=== PATIENT | male | born 1935 | race Caucasian/White ===

== ENCOUNTER 2022-02-16 18:24 | Inpatient (IN) ==
[2022-02-16] MEDS ORDERED: 0.9 % SODIUM CHLORIDE 1,000 ML IV ONE (19:31)
--- NOTE | 2022-02-16 19:36 | Emergency Department Note ---
Fall HPI General Chief Complaint: Fall Stated Complaint: fall, hip pain Time Seen by Provider: 02/16/22 18:50 Source: patient, family and EMS Mode of arrival: ambulatory Limitations: no limitations History of Present Illness HPI Narrative: Narrative: Patient presents to ED via EMS status post fall. Patient states that he was watching TV and he went up to get up and fell down. He reports pain in his hip and in his left shoulder. He reports he did not hit his head. Denies loss of consciousness, chest pain, abdominal pain, knee pain, vision changes, headache, shortness of breath, neck pain. Patient that he was on the ground for 30 minutes before his son came over and called the emergency services. Patient denies any other alleviating or aggravating factors. Related Data Home Medications Medication Instructions Recorded Confirmed naproxen sodium 220 mg tablet 220 mg PO Q12H PRN Pain 10/08/20 07/16/21 (Aleve) calcium carbonate 500 mg calcium 1,000 mg PO QDAY 02/04/21 07/16/21 (1,250 mg) tablet (Calcium 500) cholecalciferol (vitamin D3) 50 2,000 unit PO QDAY 02/04/21 07/16/21 mcg (2,000 unit) tablet ferrous sulfate 325 mg (65 mg 325 mg PO QDAY 02/04/21 07/16/21 iron) tablet Previous Rx's Medication Instructions Recorded nitroglycerin 0.4 mg sublingual 0.4 mg sublingual Q5-15M PRN chest 06/17/21 tablet pain #25 tabs omeprazole 20 mg capsule,delayed 20 mg PO QAM #30 caps 06/26/21 release sertraline 25 mg tablet See Rx Instructions .Route 09/20/21 .COMPLEX #30 tabs metoprolol succinate 25 mg 25 mg PO QDAY #90 tabs 12/18/21 tablet,extended release 24 hr torsemide 10 mg tablet See Rx Instructions .Route 12/18/21 .COMPLEX #30 ea simvastatin 20 mg tablet 20 mg PO QHS #30 tabs 01/07/22 spironolactone 25 mg tablet 12.5 mg PO QDAY #30 tabs 02/04/22 Allergies Allergy/AdvReac Type Severity Reaction Status Date / Time No Known Intolerances Allergy Unknown unknown Verified 07/16/21 10:48 Chicken Feathers Allergy Unknown unknown Uncoded 07/16/21 10:48 Review of Systems ROS ROS Narrative: Narrative: All systems ED: reviewed and negative except as stated. [facility] Narrative Patient History Narrative: Narrative: Medical/Surgical/Family History All Active Problems (Updated 02/16/22 @ 21:52 by Colby Saldaña DO) Closed fracture of neck of left femur (Acute) Fall (Acute) Head injury (Acute) Traumatic hematoma of forehead (Acute) CAD (coronary artery disease) (Acute) Medicare annual wellness visit, subsequent (Acute) Edema (Acute) Venous stasis ulcer (Acute) Encounter for medication monitoring (Acute) DDD (degenerative disc disease), cervical (Chronic) Neck pain (Chronic) Joint pain (Chronic ~1954) High cholesterol (Chronic) High blood pressure (Chronic) Heart trouble (Chronic) Depression (Chronic ~2005) Daytime sleepiness (Chronic ~2005) Acid reflux (Chronic ~1969) Medical History (Updated 02/16/22 @ 21:52 by Colby Saldaña DO) Acid reflux (~1969) Daytime sleepiness (~2005) Depression (~2005) Heart trouble High blood pressure High cholesterol Joint pain (~1954) Neck pain Surgical History History of appendectomy History of colonoscopy Family History Mother Dementia Father Heart attack Social History Smoking Status: Former smoker Alcohol Intake Frequency: a few times a month Substance Use: does not use Exam Narrative Narrative: Narrative: General Limitations: no limitations General appearance: Present alert Head Head: Present atraumatic and normocephalic Eye Eye: Present PERRL and EOMI Neck Neck: Present normal inspection and full ROM Chest Chest: Present normal inspection; Absent tenderness Respiratory Respiratory: Present normal lung sounds bilaterally; Absent respiratory distress Cardiovascular Cardiovascular: Present regular rate and normal rhythm Adbominal Abdominal: Present soft; Absent tenderness Expanded Upper Extremity Shoulder: Present full ROM and tenderness (Left) Arm: Present normal inspection and full ROM Elbow: Present normal inspection and full ROM Expanded Lower Extremity Hip/Pelvis: Present tenderness; Absent swelling or deformity Upper leg: Present normal inspection and full ROM Knee: Present normal inspection and full ROM Back Back: Absent L-S tenderness Neurological Neurological: Present alert and oriented X3 Psychiatric Psychiatric: Present normal affect and normal mood Skin Skin: Present warm (WNL) and intact Course Course Course Narrative: Patient was evaluated for left hip and shoulder pain status post fall. X-ray of the left shoulder was negative for any acute findings. Labs show that patient was dehydrated elevated BUN and creatinine she was given IV fluids. CT of the pelvis obtained with image reviewed myself which revealed a left displaced femoral neck fracture. Case was discussed with orthopedic surgery recommend the patient be admitted to the hospitalist service and made n.p.o. after 8 AM tomorrow. Case was discussed with hospitalist who is graciously excepted josh ent to be admitted. Plan of care was discussed with patient he expressed verbal understanding agreement. Reevaluation(s) Reevaluation #1: Patient remains hemodynamically stable. No new complaints at this time Time: 20:15 Consultations Consultation #1: Case discussed with on-call orthopedic surgeon, Dr. Braun, recommend that patient be admitted to the hospitalist, made n.p.o. after 8 AM tomorrow for respective surgery. Time: 21:45 Consultation #2: Case discussed with hospitalist, Dr. Schulte, who has graciously except the patient to be admitted to the hospital. Time: 21:55 Vital Signs Vital signs: Vital Signs Temperature 99.4 F H 02/16/22 18:39 Pulse Rate 66 02/16/22 18:39 Respiratory Rate 17 02/16/22 18:39 Blood Pressure 152/70 02/16/22 18:39 Pulse Oximetry (%) 94 02/16/22 18:39 Oxygen Delivery Method 02/16/22 18:39 Temperature 99.4 F H 02/16/22 18:39 Pulse Rate 73 02/16/22 21:16 Respiratory Rate 18 02/16/22 21:16 Blood Pressure 168/76 02/16/22 21:16 Pulse Oximetry (%) 96 02/16/22 21:16 Oxygen Delivery Method 02/16/22 18:39 MDM MDM Narrative Medical decision making narrative: Narrative: Differential Diagnosis Differential Diagnosis: Hip fracture, shoulder fracture, fall Medical Records Medical records reviewed: Yes I reviewed the patient's medical records. Lab Data Result diagrams: 02/16/22 19:42 Labs: Lab Results 02/16/22 02/16/22 Range/Units 19:42 19:42 WBC 9.1 (4.5-11.0) K/mcL RBC 3.38 L (4.63-6.08) M/mcL Hgb 12.2 L (13.7-17.5) g/dL Hct 35.4 L (40.1-51.0) % POC Hct 36.0 L (41-55) MCV 104.7 H (80.0-100.0) fL MCH 36.1 H (26.0-34.0) pg MCHC 34.5 (31.0-36.0) g/dL RDW 14.2 (11.5-14.5) % Plt Count 169 (140-440) K/mcL MPV 9.8 (8.8-12.5) fL Immature Gran % (Auto) 0.8 H (0.0-0.5) % Neut % (Auto) 76.6 (38.0-78.0) % Lymph % (Auto) 11.1 L (15.5-49.0) % Rankin % (Auto) 9.5 (1.0-12.0) % Eos % (Auto) 1.4 (0.0-7.0) % Baso % (Auto) 0.6 (0.0-2.0) % Lymph # (Auto) 1.01 L (1.50-4.80) K/mcL Rankin # (Auto) 0.86 (0.10-0.90) K/mcL Eos # (Auto) 0.13 (0.00-0.70) K/mcL Baso # (Auto) 0.05 (0.00-0.30) K/mcL Immature Gran # 0.07 H (0.00-0.05) K/mcl Absolute Neutrophils 6.94 (1.80-8.00) K/mcL POC Sodium 140 (133-145) POC Potassium 4.5 (3.3-5.1) POC Chloride 103 (96-108) POC Total CO2 25.0 (22-30) POC BUN 28 H (6-20) POC Creatinine 1.7 H (0.6-1.2) POC Glucose 118 H (70-105) POC WB Ioniz Calcium 1.13 L (1.16-1.32) Radiology Data Radiology results reviewed: Yes I reviewed the patient's radiology results. Radiology results narrative: CT of the pelvis obtained with image reviewed myself which revealed a left displaced femoral neck fracture X-ray of the left shoulder obtained, no acute findings Core Measures AMI Core Measures Followed: Yes Discharge Plan Patient/Caregiver Discharge Instructions Pt seen by [employer] DEVELOPER/PA only: No Clinical Impression: Closed fracture of neck of left femur Qualifiers: Encounter type: initial encounter Qualified Code(s): S72.002A - Fracture of unspecified part of neck of left femur, initial encounter for closed fracture Fall Qualifiers: Encounter type: initial encounter Qualified Code(s): W19.XXXA - Unspecified fall, initial encounter Patient Disposition: Xfer As Outpt/Obs ([facility]) Condition: Good Follow up with: No,PCP [Primary Care Provider] - Prescriptions: No Action cholecalciferol (vitamin D3) 50 mcg (2,000 unit) tablet 2,000 unit PO QDAY calcium carbonate [Calcium 500] 500 mg calcium (1,250 mg) tablet 1,000 mg PO QDAY ferrous sulfate 325 mg (65 mg iron) tablet 325 mg PO QDAY omeprazole 20 mg capsule,delayed release(DR/EC) 20 mg PO QAM Qty: 30 12RF Rx Instructions: 1 hr.prior to breakfast. sertraline 25 mg tablet See Rx Instructions .ROUTE .COMPLEX Qty: 30 6RF Dose Instruction: TAKE ONE TABLET BY MOUTH EVERY DAY Rx Instructions: TAKE ONE TABLET BY MOUTH EVERY DAY metoprolol succinate 25 mg tablet extended release 24 hr 25 mg PO QDAY Qty: 90 0RF torsemide 10 mg tablet See Rx Instructions .ROUTE .COMPLEX Qty: 30 3RF Dose Instruction: TAKE ONE TABLET BY MOUTH Thursday AND THURSDAY FOR EDEMA Rx Instructions: TAKE ONE TABLET BY MOUTH Thursday AND THURSDAY FOR EDEMA simvastatin 20 mg tablet 20 mg PO QHS Qty: 30 2RF spironolactone 25 mg tablet 12.5 mg PO QDAY Qty: 30 1RF nitroglycerin 0.4 mg tablet, sublingual 0.4 mg sublingual Q5-15M PRN (Reason: chest pain) Qty: 25 1RF Rx Instructions: do not exceed 3 doses per episode naproxen sodium [Aleve] 220 mg Tablet 220 mg PO Q12H PRN (Reason: Pain)
[2022-02-16 19:46] LABS: POC Calcium, Ionized 1.13 (1.16-1.32); POC Creatinine 1.7 (0.6-1.2); POC Potassium 4.5 (3.3-5.1)
[2022-02-16 20:31] LABS: Basophils # (Auto) 0.05 K/mcL (0.00-0.30); Basophils % (Auto) 0.6 % (0.0-2.0); Eosinophils # (Auto) 0.13 K/mcL (0.00-0.70); Eosinophils % (Auto) 1.4 % (0.0-7.0); Hematocrit 35.4 % (40.1-51.0); Hemoglobin 12.2 g/dL (13.7-17.5); Lymphocytes # (Auto) 1.01 K/mcL (1.50-4.80); Lymphocytes % (Auto) 11.1 % (15.5-49.0); Mean Cell Volume 104.7 fL (80.0-100.0); Mean Corpuscular HGB Conc 34.5 g/dL (31.0-36.0); Mean Platelet Volume 9.8 fL (8.8-12.5); Monocytes # (Auto) 0.86 K/mcL (0.10-0.90); Monocytes % (Auto) 9.5 % (1.0-12.0); Neutrophils % (Auto) 76.6 % (38.0-78.0); Platelet Count 169 K/mcL (140-440); RBC 3.38 M/mcL (4.63-6.08); Red Cell Distribution Width 14.2 % (11.5-14.5); WBC 9.1 K/mcL (4.5-11.0)
[2022-02-16] MEDS ORDERED: ACETAMINOPHEN 325 MG TABLET PO ONE (21:29)
[2022-02-16] MEDS ORDERED: fentaNYL 100 MCG/2 ML VIAL IV ONE (21:46)
--- NOTE | 2022-02-16 22:04 | Internal Med History&Physical ---
HPI History of Present Illness Patient information: Note initiated : 02/16/22 at 9:59 pm Service Date, if different from initiated Date: [] Patient: Aura Hyatt 87 y/o M admitted on for fall, hip pain. Chief Complaint: [] History of present illness: Mr. Hyatt is a 87 year old male with a history of hypertension, hyperlipidemia, coronary artery disease status post CABG, probable CKD stage III, atrial flutter not on anticoagulation due to personal choice, peripheral vascular disease who had a mechanical fall at home and brought into the emergency department where he was found to have a left intertrochanteric femoral fracture. [facility] medicine was asked to admit the patient with orthopedic surgery consulting for surgical repair. Review of systems Constitutional: no fever, fatigue, or weight loss Eyes: no vision changes or pain Cardiovascular: no chest pain, no palpitations Respiratory: no cough or dyspnea Gastrointestinal: no abdominal pain, no nausea, vomiting, or diarrhea Genitourinary: no dysuria or difficulty voiding Musculoskeletal: Left hip pain with movement Integumentary: no skin lesion or wound Neurological: no focal weakness or numbness Psychiatric: no anxiety or depression Physical exam Head: Atraumatic, normal inspection. Eyes: normal appearance, no scleral icterus. Neck: full ROM Respiratory: no respiratory distress. Cardiovascular: Sternotomy incision, normal rate and rhythm, S1, S2. GI/Abdominal: soft, nontender, no guarding. Extremities: Left hip tenderness, limited range of motion to left lower extremity. Neurological: CN II-XII intact, intact motor, intact sensation. Psychiatric: normal mood. Skin: warm, normal color PFSH PFSH All Active Problems Closed fracture of neck of left femur (Acute) Fall (Acute) Head injury (Acute) Traumatic hematoma of forehead (Acute) CAD (coronary artery disease) (Acute) Medicare annual wellness visit, subsequent (Acute) Edema (Acute) Venous stasis ulcer (Acute) Encounter for medication monitoring (Acute) DDD (degenerative disc disease), cervical (Chronic) Neck pain (Chronic) Joint pain (Chronic ~1954) High cholesterol (Chronic) High blood pressure (Chronic) Heart trouble (Chronic) Depression (Chronic ~2005) Daytime sleepiness (Chronic ~2005) Acid reflux (Chronic ~1969) Medical History Acid reflux (~1969) Daytime sleepiness (~2005) Depression (~2005) Heart trouble High blood pressure High cholesterol Joint pain (~1954) Neck pain Surgical History History of appendectomy History of colonoscopy Family History Mother Dementia Father Heart attack Social History marital status: occupational status: retired smoking status: Former smoker pack-years: 20 smoking status stop date: 05/04/96 alcohol intake frequency: a few times a month substance use type: does not use MEDS/ALLERGIES Home Medications and Allergies Home Medications Medication Instructions Recorded Confirmed Type cholecalciferol (vitamin D3) 50 2,000 unit PO QDAY 02/04/21 02/16/22 History mcg (2,000 unit) tablet ferrous sulfate 325 mg (65 mg 325 mg PO QDAY 02/04/21 02/16/22 History iron) tablet nitroglycerin 0.4 mg sublingual 0.4 mg sublingual Q5-15M PRN chest 06/17/21 02/16/22 Rx tablet pain #25 tabs omeprazole 20 mg capsule,delayed 20 mg PO QAM #30 caps 06/26/21 02/16/22 Rx release sertraline 25 mg tablet See Rx Instructions .Route 09/20/21 02/16/22 Rx .COMPLEX #30 tabs metoprolol succinate 25 mg 25 mg PO QDAY #90 tabs 12/18/21 02/16/22 Rx tablet,extended release 24 hr torsemide 10 mg tablet See Rx Instructions .Route 12/18/21 02/16/22 Rx .COMPLEX #30 ea simvastatin 20 mg tablet 20 mg PO QHS #30 tabs 01/07/22 02/16/22 Rx spironolactone 25 mg tablet 12.5 mg PO QDAY #30 tabs 02/04/22 02/16/22 Rx Allergies Allergy/AdvReac Type Severity Reaction Status Date / Time No Known Drug Allergies Allergy Unverified 02/17/22 05:55 EXAM Constitutional Vitals: Temp Pulse Resp BP Pulse Ox O2 Del Method 99.4 F H 73 18 168/76 96 02/16/22 18:39 02/16/22 21:16 02/16/22 21:16 02/16/22 21:16 02/16/22 21:16 02/16/22 18:39 DATA Data Completed and Pending Labs: Labs from last 24 hours 02/16/22 02/16/22 19:42 19:42 WBC 9.1 RBC 3.38 L Hgb 12.2 L Hct 35.4 L POC Hct 36.0 L MCV 104.7 H MCH 36.1 H MCHC 34.5 RDW 14.2 Plt Count 169 MPV 9.8 Immature Gran % (Auto) 0.8 H Neut % (Auto) 76.6 Lymph % (Auto) 11.1 L Prentiss % (Auto) 9.5 Eos % (Auto) 1.4 Baso % (Auto) 0.6 Lymph # (Auto) 1.01 L Prentiss # (Auto) 0.86 Eos # (Auto) 0.13 Baso # (Auto) 0.05 Immature Gran # 0.07 H Absolute Neutrophils 6.94 POC Sodium 140 POC Potassium 4.5 POC Chloride 103 POC Total CO2 25.0 POC BUN 28 H POC Creatinine 1.7 H POC Glucose 118 H POC WB Ioniz Calcium 1.13 L A/P Narrative A/P Narrative: Assessment: 87 year old male with a history of hypertension, hyperlipidemia, coronary artery disease status post CABG, atrial flutter not on anticoagulation, probable CKD stage III now admitted for a left peritrochanteric femoral fracture from a ground level mechanical fall. #Left femoral neck fracture due to mechanical fall #Acute kidney injury, probable CKD stage III at baseline #Coronary artery disease, stable #Atrial flutter not on anticoagulation due to personal preference #Macrocytic anemia #Hypertension #Hyperlipidemia Plan -Analgesics as needed, avoid NSAIDs. -IV fluid. -EKG for baseline. -Follow renal function. -Home medications reconciliation. -Orthopedic surgery consult. -NPO after midnight. -PT consult -CODE STATUS: DNR/DNI Plan of Treatment: On exam patient is seated at the edge of the bed mildly agitated in some distress. He is alert and oriented to person and place. He is able to answer questions appropriately and understands that he does have a fracture of his left hip. Pupils are PERRL, mucous membranes are moist, lungs are equal and clear bilaterally heart normal rate and rhythm. Head, neck, chest, abdomen, bilateral upper extremities are nontender to palpation and exhibit normal range of motion and strength. Bilateral lower extremities are warm, well-perfused, neurovascular intact with intact ankle motion to testing. At the left hip and pelvis area there is tenderness to palpation and with any range of motion CT imaging obtained via the [facility] reveals a basicervical fracture of the left femoral neck. Options were presented to the patient including nonsurgical and surgical option nonsurgical which carries a risk of increased pain, increased injury to nerves and adjacent blood vessels, surgical options consisting of left hip hemiarthroplasty at this time patient is interested in surgery Plan is for left hip hemiarthroplasty to take place [place] emergently with Dr. Braun orthopedic surgeon [employer] [facility] Surgical risks were explained to the patient including but not limited to: Pain, bleeding, infection, injury to adjacent structures, need for further surgery, implant failure, stroke risk, cardiac complications including heart attack or [place], pulmonary complications including pneumonia and pulmonary embolism, DVT, anesthesia reactions and . Patient understands his risks and wishes to proceed with surgery. Time Spent With Patient Time: Total time spent is greater than 50% in coordination of care (as documented) at patient's floor/unit and/or counseling patient:
[2022-02-16] MEDS ORDERED: HYDROmorphone 0.5 MG/0.5 ML SYRINGE IV PRN (23:11)
[2022-02-16] MEDS ORDERED: ONDANSETRON 4 MG/2 ML VIAL IV PRN (23:11)
[2022-02-16] MEDS ORDERED: HYDROcodone/APAP 5/325MG TABLET PO PRN (23:11)
[2022-02-16] MEDS ORDERED: 0.9 % SODIUM CHLORIDE 1,000 ML IV SCH (23:11)
[2022-02-16] MEDS ORDERED: ACETAMINOPHEN 325 MG TABLET PO PRN (23:11)
[2022-02-16] MEDS: 0.9 % SODIUM CHLORIDE 10 ML SYRINGE IV SCH (23:17)
[2022-02-17] MEDS ORDERED: ACETAMINOPHEN 325 MG TABLET PO ONE (01:05)
[2022-02-17] MEDS ORDERED: HYDROmorphone 0.5 MG/0.5 ML SYRINGE ONE (04:03)
--- NOTE | 2022-02-17 05:30 | XRay Report ---
CLINICAL INFORMATION: Trauma-fall COMPARISON: None. FINDINGS: The acromioclavicular and glenohumeral joint spaces are normal in width and alignment without arthritic change. There is no fracture or other osseous abnormality. Soft tissues are unremarkable. IMPRESSION: Normal exam. Interpreted and Authenticated by: Jos Hall 02/17/22
--- NOTE | 2022-02-17 05:32 | XRay Report ---
CLINICAL INFORMATION: Trauma-fall COMPARISON: 10/08/2020 TECHNIQUE: Portable FINDINGS: Sternotomy/CABG changes again noted. The heart is mildly enlarged. Mediastinum and pulmonary vessels are unremarkable. COPD with scattered scarring in the mid and lower lungs again noted. There are no new pulmonary abnormalities. No effusions or evidence of pneumothorax. MALUNIFIED old right rib fractures seen as before. IMPRESSION: No acute posttraumatic change Mild cardiomegaly and COPD stable. No acute radial pulmonary disease Interpreted and Authenticated by: Jos Hall 02/17/22
[2022-02-17] MEDS: 0.9 % SODIUM CHLORIDE 10 ML SYRINGE IV SCH ×3 (05:48→20:29)
--- NOTE | 2022-02-17 06:52 | Cat Scan Report ---
CLINICAL INFORMATION: Trauma COMPARISON: None. TECHNIQUE: 0.625 mm helical slices were obtained from the mid L4 through the subtrochanteric regions. Following reconstruction, 2.5 mm sagittal, coronal and axial reformations were processed. The exam was reviewed in bone and soft tissue windows. The exam was performed using radiation dose optimization techniques including, but not limited to, automated exposure control, adjustment of mA and/or kV according to patient size and use of iterative reconstruction technique. FINDINGS: Oblique, mildly comminuted basicervical fracture of the left hip features moderate impaction of the femoral neck into the intertrochanteric region. There is a resultant coxa vara angulation. Mild L4 compression fracture with approximately 30% loss vertebral height is likely chronic. No other osseous abnormality. Both SI and hip joints are normal in width and alignment arthritic change. 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 Urinary bladder is mildly distended with multiple small diverticuli projecting from the anterior dome region. Sigmoid diverticulosis appreciated, but no evidence of diverticulitis. The remaining visualized large and small bowel are normal. 14 mm low-attenuation lesion inferior pole right kidney is likely a cyst IMPRESSION: 1. Mildly comminuted acute basicervical fracture left hip with moderate impaction and coxa vara angulation. 2. Multiple diverticuli projecting from the anterior urinary bladder dome. 3. Mild L4 compression fracture likely chronic 4. Severe central canal and bilateral lateral recess stenosis at L3-4 and L4-5 due to broad disc protrusions, facet arthropathy and ligamentum flavum hypertrophy. Interpreted and Authenticated by: Jos Hall 02/17/22
[2022-02-17 07:15] LABS: ALT/SGPT 16 U/L (<40); AST/SGOT 26 U/L (<40); Albumin 3.9 gm/dL (3.2-5.2); Albumin/Globulin Ratio 1.5 (1.0-2.3); Alkaline Phosphatase 67 U/L (39-117); Bilirubin,Direct < 0.2 mg/dL (0-0.3); Bilirubin,Total 0.7 mg/dL (0.1-1.0); Blood Urea Nitrogen 22 mg/dL (8-23); Calcium 8.8 mg/dL (8.6-10.4); Carbon Dioxide 22 mmol/L (22-30); Chloride 101 mmol/L (96-108); Globulin 2.6 gm/dL (2.2-3.7); Glomerular Filtration Rate 45; Glucose 116 mg/dL (70-105); Lactate Dehydrogenase 195 U/L (135-225); Triglycerides 87 mg/dL (<150); Uric Acid 5.9 mg/dL (2.5-8.0)
--- NOTE | 2022-02-17 07:22 | EKG ---
TS Minor Care Test Date: 2022-02-16 Pat Name: Aura Hyatt Department: ED Room: Gender: Male Rhit: [facility] : 1935 Requested By: Colby Saldaña Order Number: [id number] Reading MD: Eliezer Juan Measurements Intervals [place] Rate: 76 P: VT: QRS: -11 QRSD: 147 T: -32 QT: 392 QTc: 441 Interpretive Statements Atrial flutter with predominant 3:1 AV block Right bundle branch block Electronically Signed On 02-17-2022 7:22:49 PDT by Eliezer Juan /store/M0/[id number]
[2022-02-17] MEDS ORDERED: IPRATROPIUM/ALBUTEROL 3 ML AMPUL.NEB NEB PRN ×2 (07:57→16:34)
--- NOTE | 2022-02-17 08:22 | Orthopedic History & Physical ---
HPI History of Present Illness Patient information: Note initiated : 02/17/22 at 8:19 am Service Date, if different from initiated Date: [] Patient: Aura Hyatt 87 y/o M admitted on 02/16/22 for fall, hip pain. Chief Complaint: [Left hip pain status post fall ] Chief complaint: Left hip pain status post fall History of present illness: Patient presents to ED via EMS status post fall. Patient states that he was watching TV and he went up to get up and fell down. He reports pain in his hip and in his left shoulder. He reports he did not hit his head. Denies loss of consciousness, chest pain, abdominal pain, knee pain, vision changes, headache, shortness of breath, neck pain. Patient that he was on the ground for 30 minutes before his son came over and called the emergency services. Patient denies any other alleviating or aggravating factors. Review of Systems All systems: reviewed and no additional remarkable complaints except as stated PFSH PFSH All Active Problems Closed fracture of neck of left femur (Acute) Fall (Acute) Head injury (Acute) Traumatic hematoma of forehead (Acute) CAD (coronary artery disease) (Acute) Medicare annual wellness visit, subsequent (Acute) Edema (Acute) Venous stasis ulcer (Acute) Encounter for medication monitoring (Acute) DDD (degenerative disc disease), cervical (Chronic) Neck pain (Chronic) Joint pain (Chronic ~1954) High cholesterol (Chronic) High blood pressure (Chronic) Heart trouble (Chronic) Depression (Chronic ~2005) Daytime sleepiness (Chronic ~2005) Acid reflux (Chronic ~1969) Medical History Acid reflux (~1970) Daytime sleepiness (~2005) Depression (~2005) Heart trouble High blood pressure High cholesterol Joint pain (~1954) Neck pain Surgical History History of appendectomy History of colonoscopy Family History Mother Dementia Father Heart attack Social History marital status: occupational status: retired smoking status: Former smoker pack-years: 20 smoking status stop date: 05/04/96 alcohol intake frequency: a few times a month substance use type: does not use MEDS/ALLERGIES Home Medications and Allergies Home Medications Medication Instructions Recorded Confirmed Type cholecalciferol (vitamin D3) 50 2,000 unit PO QDAY 02/04/21 02/16/22 History mcg (2,000 unit) tablet ferrous sulfate 325 mg (65 mg 325 mg PO QDAY 02/04/21 02/16/22 History iron) tablet nitroglycerin 0.4 mg sublingual 0.4 mg sublingual Q5-15M PRN chest 06/17/21 02/16/22 Rx tablet pain #25 tabs omeprazole 20 mg capsule,delayed 20 mg PO QAM #30 caps 06/26/21 02/16/22 Rx release sertraline 25 mg tablet See Rx Instructions .Route 09/20/21 02/16/22 Rx .COMPLEX #30 tabs metoprolol succinate 25 mg 25 mg PO QDAY #90 tabs 12/18/21 02/16/22 Rx tablet,extended release 24 hr torsemide 10 mg tablet See Rx Instructions .Route 12/18/21 02/16/22 Rx .COMPLEX #30 ea simvastatin 20 mg tablet 20 mg PO QHS #30 tabs 01/07/22 02/16/22 Rx spironolactone 25 mg tablet 12.5 mg PO QDAY #30 tabs 02/04/22 02/16/22 Rx Allergies Allergy/AdvReac Type Severity Reaction Status Date / Time No Known Drug Allergies Allergy Unverified 02/17/22 05:55 Physical Examination Narrative Narrative: Narrative: Results Labs Result Diagrams: 02/16/22 19:42 02/17/22 05:50 Labs: Abnormal lab results 02/16/22 02/16/22 02/17/22 Range/Units 19:42 19:42 05:50 RBC 3.38 L (4.63-6.08) M/mcL Hgb 12.2 L (13.7-17.5) g/dL Hct 35.4 L (40.1-51.0) % POC Hct 36.0 L (41-55) MCV 104.7 H (80.0-100.0) fL MCH 36.1 H (26.0-34.0) pg Immature Gran % (Auto) 0.8 H (0.0-0.5) % Lymph % (Auto) 11.1 L (15.5-49.0) % Lymph # (Auto) 1.01 L (1.50-4.80) K/mcL Immature Gran # 0.07 H (0.00-0.05) K/mcl POC BUN 28 H (6-20) Creatinine 1.4 H (0.7-1.2) mg/dL POC Creatinine 1.7 H (0.6-1.2) Glucose 116 H (70-105) mg/dL POC Glucose 118 H (70-105) POC WB Ioniz Calcium 1.13 L (1.16-1.32) GGT 66 H (8-61) U/L H & H 02/16/22 Range/Units 19:42 Hgb 12.2 L (13.7-17.5) g/dL Hct 35.4 L (40.1-51.0) % All other labs normal. A/P Narrative A/P Narrative: Patient is an 87-year-old male who was ambulating independently in his own home when he suffered a ground-level mechanical fall suffering a left basicervical neck fracture of the left femur. Plan of Treatment: On exam patient is seated at the edge of the bed mildly agitated in some distress. He is alert and oriented to person and place. He is able to answer questions appropriately and understands that he does have a fracture of his left hip. Pupils are PERRL, mucous membranes are moist, lungs are equal and clear bilaterally heart normal rate and rhythm. Head, neck, chest, abdomen, bilateral upper extremities are nontender to palpation and exhibit normal range of motion and strength. Bilateral lower extremities are warm, well-perfused, neurovascular intact with intact ankle motion to testing. At the left hip and pelvis area there is tenderness to palpation and with any range of motion CT imaging obtained via the [facility] ER reveals a basicervical fracture of the left femoral neck. Options were presented to the patient including nonsurgical and surgical option nonsurgical which carries a risk of increased pain, increased injury to nerves and adjacent blood vessels, surgical options consisting of left hip hemiarthroplasty at this time patient is interested in surgery Plan is for left hip hemiarthroplasty to take place [place] emergently with Dr. Bruan orthopedic surgeon Roby Powers, [place] Surgical risks were explained to the patient including but not limited to: Pain, bleeding, infection, injury to adjacent structures, need for further surgery, implant failure, stroke risk, cardiac complications including heart attack or [place], pulmonary complications including pneumonia and pulmonary embolism, DVT, anesthesia reactions and . Patient understands his risks and wishes to proceed with surgery. Time Spent With Patient Time: Total time spent is greater than 50% in coordination of care (as documented) at patient's floor/unit and/or counseling patient:
[2022-02-17] MEDS: MUPIROCIN OINT 2% 22GM NARES SCH ×2 (08:50→20:29)
[2022-02-17] MEDS: 0.9 % SODIUM CHLORIDE 1,000 ML IV SCH (09:00)
[2022-02-17] MEDS ORDERED: DOCUSATE SODIUM 100 MG CAPSULE PO SCH (09:00)
[2022-02-17] MEDS ORDERED: LIDOCAINE HCL/PF 100 MG/5 ML SYRINGE IV ONE (15:48)
[2022-02-17] MEDS ORDERED: TRANEXAMIC ACID 1,000 MG/10 ML VIAL ONE (15:48)
[2022-02-17] MEDS ORDERED: ROPIVACAINE HCL/PF 20 ML VIAL IJ ONE (15:48)
[2022-02-17] MEDS ORDERED: KETAMINE 50 MG/ML Syringe (ANEST) IV ONE (15:48)
[2022-02-17] MEDS ORDERED: DEXAMETHASONE 10 MG/ML VIAL ONE (15:48)
[2022-02-17] MEDS ORDERED: GLYCOPYRROLATE 0.2 MG/ML VIAL IV ONE (15:48)
[2022-02-17] MEDS ORDERED: PROPOFOL 200 MG/20 ML VIAL IV ONE (15:48)
[2022-02-17] MEDS ORDERED: ONDANSETRON 4 MG/2 ML VIAL ONE (15:48)
[2022-02-17] MEDS ORDERED: fentaNYL 100 MCG/2 ML VIAL IV ONE (15:48)
[2022-02-17] MEDS ORDERED: PHENYLephrine 1 MG/10 ML SYRINGE (ANEST) ONE (15:48)
[2022-02-17] MEDS ORDERED: MAGNESIUM SULFATE 2 GM/50 ML BAG IV ONE (15:48)
[2022-02-17] MEDS ORDERED: VANCOMYCIN 1,000 MG in 0.9 % SODIUM CHLORIDE 250 ML IV SCH (16:30)
[2022-02-17] MEDS ORDERED: LABETALOL 5 MG/ML ML IV PRN (16:34)
[2022-02-17] MEDS ORDERED: METOPROLOL TARTRATE 5 MG/5 ML VIAL IV PRN (16:34)
[2022-02-17] MEDS ORDERED: NALOXONE HCL 0.4 MG/ML VIAL IV PRN (16:34)
[2022-02-17] MEDS ORDERED: fentaNYL 100 MCG/2 ML VIAL IV PRN (16:34)
[2022-02-17] MEDS ORDERED: METHOCARBAMOL 1,000 MG/10 ML VIAL IV PRN (16:34)
[2022-02-17] MEDS ORDERED: ACETAMINOPHEN 1,000 MG/100 ML BAG IV ONE (16:34)
[2022-02-17] MEDS ORDERED: LACTATED RINGERS 250 ML IV PRN (16:34)
[2022-02-17] MEDS ORDERED: ONDANSETRON 4 MG/2 ML VIAL IV PRN ×3 (16:34→16:54)
[2022-02-17] MEDS ORDERED: LACTATED RINGERS 1,000 ML IV SCH (16:45)
[2022-02-17] MEDS ORDERED: HYDROCODONE/APAP 7.5/325MG TABLET PO PRN (16:54)
[2022-02-17] MEDS ORDERED: TRANEXAMIC ACID 1,000 MG/10 ML VIAL IV ONE (16:54)
[2022-02-17] MEDS ORDERED: MAGNESIUM HYDROXIDE 30 ML ORAL.SUSP PO PRN (16:54)
[2022-02-17] MEDS ORDERED: TEMAZEPAM 15 MG CAPSULE PO PRN (16:54)
[2022-02-17] MEDS ORDERED: ACETAMINOPHEN 325 MG TABLET PO PRN (16:54)
[2022-02-17] MEDS ORDERED: HYDROmorphone 1 MG/ML SYRINGE IV PRN (16:54)
[2022-02-17] MEDS ORDERED: POLYETHYLENE GLYCOL 3350 17 GM PACKET PO PRN (16:54)
[2022-02-17] MEDS ORDERED: BISACODYL 10 MG SUPP.RECT PR PRN (16:54)
[2022-02-17] MEDS ORDERED: FLEETS ADULT ENEMA PR PRN (16:54)
--- NOTE | 2022-02-17 16:54 | Brief Operative Note ---
Brief Operative Note Date of procedure: 02/17/22 Pre-op diagnosis: left femoral neck fx Post-op diagnosis: same Procedure: left femoral neck fx hemiarthroplasty Grafts/Implants: Yes Anesthesia: GETA Findings: femoral neck fx Complications: none Surgeon: Cruz Peraza Pit Crane Operator: Chi Watson Estimated blood loss (cc): 58 Specimens Removed/Pathology: none sent Condition: stable Disposition: PACU
[2022-02-17] MEDS: ceFAZolin 2 GM in DEXTROSE 5% IN WATER 50 ML IV SCH ×2 (17:11→18:53)
--- NOTE | 2022-02-17 17:32 | XRay Report ---
CLINICAL INFORMATION: Left hip prostheses FINDINGS: The left hip prostheses is anatomically aligned. The right hip is normal. There are no osseous abnormalities. Soft tissue swelling over the surgical site-as expected. 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 Interpreted and Authenticated by: Jos Hall 02/17/22
[2022-02-17] MEDS: 0.45 % SODIUM CHLORIDE 1,000 ML IV SCH (19:00)
[2022-02-17] MEDS: DOCUSATE SODIUM 100 MG CAPSULE PO SCH (20:28)
[2022-02-17] MEDS: ASPIRIN 81 MG TAB.CHEW CHEWED SCH (20:29)
[2022-02-17] MEDS: SENNOSIDES 1 TABLET PO SCH (20:29)
[2022-02-17] MEDS ORDERED: SENNOSIDES 1 TABLET PO SCH (21:00)
[2022-02-18] MEDS: ceFAZolin 1 GM VIAL IV SCH ×2 (00:48→15:05)
[2022-02-18] MEDS: 0.9 % SODIUM CHLORIDE 10 ML SYRINGE IV SCH ×3 (04:57→22:00)
[2022-02-18] MEDS: 0.9 % SODIUM CHLORIDE 1,000 ML IV SCH (04:58)
[2022-02-18] MEDS: 0.45 % SODIUM CHLORIDE 1,000 ML IV SCH ×2 (05:09→15:53)
--- NOTE | 2022-02-18 07:42 | Orthopedic Progress Note ---
SUBJECTIVE Subjective Patient information: Note initiated : 02/18/22 at 7:41 am Service Date, if different from initiated Date: [] Patient: Aura Hyatt 87 y/o M admitted on 02/16/22 for fall, hip pain. Chief Complaint: [Pt is stable this morning on post operative day without any significant concerns or complaints. Patients vital signs have remained stable. Patients dressing is dry and is grossly intact from a neurovascular and motor standpoint. Patients 10 point ROS is otherwise negative. ] Constitutional Vitals: Vital Signs Temp Pulse Resp BP Pulse Ox O2 Del Method O2 Flow Rate 97.4 F 76 16 136/64 93 96 02/18/22 02:52 02/18/22 02:52 02/18/22 02:52 02/18/22 02:52 02/18/22 05:40 02/18/22 05:40 02/18/22 00:00 Period Temp Pulse Resp BP Sys/Gilliam Pulse Ox O2 Del Method O2 Flow Rate Last 24 Hr 97.3 F-99.9 F 64-105 - 110-185/61-120 2-100 Nasal Cannula- Simple Mask 1-96 Intake and Output 02/17/22 02/18/22 02/18/22 21:59 05:59 13:59 Intake Total 1800 1800 Output Total 450 375 Balance 1350 1425 Weight 152 lb 6.4 oz Intake & Output: Intake & Output 02/17/22 02/18/22 02/18/22 21:59 05:59 13:59 Intake Total 1800 1800 Output Total 450 375 Balance 1350 1425 Weight 152 lb 6.4 oz Intake: IV 100 1250 Sodium Chloride 0.45% 1,000 ml 1000 @ 100 mls/hr IV .Q10H [facility] Rx#: [id number] Vancomycin 1,000 mg In Sodium 250 Chloride 0.9% 250 ml @ 250 mls/ hr IV PREOP [facility] Rx#:[id number] Oral 550 IV - Manual Only 1700 Output: Void Amount 400 375 Estimated Blood Loss 50 Other: Urine Appearance Clear Clear Urine Color Dark Yellow Yellow Urine Odor Normal # Voids 1 Extremities Exam Extremities exam: Present normal capillary refill, normal inspection, Foot pink and warm and neurovascular intact OBJ DATA Labs CBC & Chem 7: 02/18/22 05:23 02/17/22 05:50 Labs: Abnormal Lab Results 02/18/22 02/17/22 02/16/22 05:23 05:50 19:42 RBC Hgb Hct 32.1 L POC Hct 36.0 L MCV MCH Immature Gran % (Auto) Lymph % (Auto) Lymph # (Auto) Immature Gran # POC BUN 28 H Creatinine 1.4 H POC Creatinine 1.7 H Glucose 116 H POC Glucose 118 H POC WB Ioniz Calcium 1.13 L GGT 66 H 02/16/22 19:42 RBC 3.38 L Hgb 12.2 L Hct 35.4 L POC Hct MCV 104.7 H MCH 36.1 H Immature Gran % (Auto) 0.8 H Lymph % (Auto) 11.1 L Lymph # (Auto) 1.01 L Immature Gran # 0.07 H POC BUN Creatinine POC Creatinine Glucose POC Glucose POC WB Ioniz Calcium GGT Meds: Medications Acetaminophen (Acetaminophen 325 Mg Tablet) 650 mg PO Q6HP PRN; Protocol PRN Reason: Per Pain Protocol/Fever > 101 Hydrocodone Bitart/Acetaminophen (Hydrocodone/Apap 7.5/325mg Tablet) 1 - 2 tab PO Q4HP PRN; Protocol PRN Reason: Per Pain Protocol Last Admin: 02/17/22 20:34 Dose: 1 tab Aspirin (Aspirin 81 Mg Tab.Chew) 81 mg CHEWED BID [facility] Last Admin: 02/17/22 20:29 Dose: 81 mg Bisacodyl (Bisacodyl 10 Mg Supp.Rect) 10 mg OH Q2-3DAYS PRN PRN Reason: Constipation Cefazolin Sodium (Cefazolin 1 Gm Vial) 2 gm IV Q8H [facility]; Protocol Stop: 02/18/22 09:01 Last Admin: 02/18/22 00:48 Dose: 2 gm Docusate Sodium (Docusate Sodium 100 Mg Capsule) 100 mg PO BID [facility] Last Admin: 02/17/22 20:28 Dose: 100 mg Hydromorphone HCl (Hydromorphone 1 Mg/Ml Syringe) 0.5 - 2 mg IV Q2HP PRN; Protocol PRN Reason: Per Pain Protocol Sodium Chloride (Sodium Chloride 0.9%) 1,000 mls @ 50 mls/hr IV .Q20H [facility] Last Admin: 02/18/22 04:58 Dose: Not Given Sodium Chloride (Sodium Chloride 0.45%) 1,000 mls @ 100 mls/hr IV .Q10H [facility] Last Admin: 02/18/22 05:09 Dose: 100 mls/hr Magnesium Hydroxide (Magnesium Hydroxide 30 Ml Oral.Susp) 30 ml PO BIDP PRN PRN Reason: Constipation Mupirocin (Mupirocin Oint 2% 22gm) 1 dose NARES BID [facility] Last Admin: 02/17/22 20:29 Dose: 1 dose Ondansetron HCl (Ondansetron 4 Mg/2 Ml Vial) 4 mg IV Q4HP PRN; Protocol PRN Reason: Nausea And Vomiting Polyethylene Glycol (Polyethylene Glycol 3350 17 Gm Packet) 17 gm PO DAILYP PRN PRN Reason: Constipation Senna (Sennosides 1 Tablet) 2 tab PO HS [facility] Last Admin: 02/17/22 20:29 Dose: Not Given Sodium Biphosphate/Sodium Phosphate (Fleets Adult Enema) 1 dose OH Q3-4DAYS PRN PRN Reason: Constipation Sodium Chloride (0.9 % Sodium Chloride 10 Ml Syringe) 10 ml IV Q8 [facility] Last Admin: 02/18/22 04:57 Dose: Not Given Temazepam (Temazepam 15 Mg Capsule) 15 mg PO HSP PRN PRN Reason: Insomnia A/P Narrative A/P Narrative: The patient has been educated regarding dressing care, , restrictions, and foll ow up appointments. The patient has had all necessary DME prescribed. The patient has remained relatively stable during their hospital course. Plan of Treatment: On exam patient is seated at the edge of the bed mildly agitated in some distress. He is alert and oriented to person and place. He is able to answer questions appropriately and understands that he does have a fracture of his left hip. Pupils are PERRL, mucous membranes are moist, lungs are equal and clear bilaterally heart normal rate and rhythm. Head, neck, chest, abdomen, bilateral upper extremities are nontender to palpation and exhibit normal range of motion and strength. Bilateral lower extremities are warm, well-perfused, neurovascular intact with intact ankle motion to testing. At the left hip and pelvis area there is tenderness to palpation and with any range of motion CT imaging obtained via the [facility] ER reveals a basicervical fracture of the left femoral neck. Options were presented to the patient including nonsurgical and surgical option nonsurgical which carries a risk of increased pain, increased injury to nerves and adjacent blood vessels, surgical options consisting of left hip hemiarthroplasty at this time patient is interested in surgery Plan is for left hip hemiarthroplasty to take place [place] emergently with Dr. Braun orthopedic surgeon HECTOR Powers Surgical risks were explained to the patient including but not limited to: Pain, bleeding, infection, injury to adjacent structures, need for further surgery, implant failure, stroke risk, cardiac complications including heart attack or [place], pulmonary complications including pneumonia and pulmonary embolism, DVT, anesthesia reactions and . Patient understands his risks and wishes to proceed with surgery. Time Spent With Patient Time: Total time spent is greater than 50% in coordination of care (as documented) at patient's floor/unit and/or counseling patient: Total time spent with greater than 50% in coordination of care (as documented) at patient's floor/unit and/or counseling patient:: less than 15 minutes Critical Care Time: No
--- NOTE | 2022-02-18 07:43 | Discharge Plan ---
Discharge Instructions - [facility] Patient Instructions Total Hip Protocol: Follow activity instructions as provided by Physical Therapy. Dressing Care: May shower in 2 days and Aquacel Ag - leave on for 5 days Discharge Plan Patient/Caregiver Discharge Instructions Activity: ambulate only with your walker and as per physical therapy Diet: Regular Diet Prescriptions: New hydrocodone-acetaminophen 5-325 mg tablet 1 - 2 tab PO Q4H PRN (Reason: Pain) Qty: 30 0RF aspirin [Ecotrin Low Strength] 81 mg tablet,delayed release (DR/EC) 81 mg PO BID Qty: 60 0RF docusate sodium 100 mg capsule 100 mg PO BID Qty: 60 0RF No Action cholecalciferol (vitamin D3) 50 mcg (2,000 unit) tablet 2,000 unit PO QDAY ferrous sulfate 325 mg (65 mg iron) tablet 325 mg PO QDAY omeprazole 20 mg capsule,delayed release(DR/EC) 20 mg PO QAM Qty: 30 12RF Rx Instructions: 1 hr.prior to breakfast. sertraline 25 mg tablet See Rx Instructions .ROUTE .COMPLEX Qty: 30 6RF Dose Instruction: TAKE ONE TABLET BY MOUTH EVERY DAY Rx Instructions: TAKE ONE TABLET BY MOUTH EVERY DAY metoprolol succinate 25 mg tablet extended release 24 hr 25 mg PO QDAY Qty: 90 0RF torsemide 10 mg tablet See Rx Instructions .ROUTE .COMPLEX Qty: 30 3RF Dose Instruction: TAKE ONE TABLET BY MOUTH Thursday AND THURSDAY FOR EDEMA Rx Instructions: TAKE ONE TABLET BY MOUTH Thursday AND THURSDAY FOR EDEMA simvastatin 20 mg tablet 20 mg PO QHS Qty: 30 2RF spironolactone 25 mg tablet 12.5 mg PO QDAY Qty: 30 1RF nitroglycerin 0.4 mg tablet, sublingual 0.4 mg sublingual Q5-15M PRN (Reason: chest pain) Qty: 25 1RF Rx Instructions: do not exceed 3 doses per episode Other Ambulatory Orders: Physical Therapy DC - [facility] (Routine) Location: None Selected Ordered By: Chi Watson Toilet Riser Discharge Order (ONCE) Location: None Selected Ordered By: Chi Watson Walker (ONCE) Location: None Selected Ordered By: Chi Watson Follow Up Plan Follow up with: No,PCP [Primary Care Provider] - Chi Watson PA-C [Physician Brewery Worker] - Patient Disposition: Xfer SNF Plan of Treatment: On exam patient is seated at the edge of the bed mildly agitated in some distress. He is alert and oriented to person and place. He is able to answer questions appropriately and understands that he does have a fracture of his left hip. Pupils are PERRL, mucous membranes are moist, lungs are equal and clear bilaterally heart normal rate and rhythm. Head, neck, chest, abdomen, bilateral upper extremities are nontender to palpation and exhibit normal range of motion and strength. Bilateral lower extremities are warm, well-perfused, neurovascular intact with intact ankle motion to testing. At the left hip and pelvis area there is tender ness to palpation and with any range of motion CT imaging obtained via the [facility] ER reveals a basicervical fracture of the left femoral neck. Options were presented to the patient including nonsurgical and surgical option nonsurgical which carries a risk of increased pain, increased injury to nerves and adjacent blood vessels, surgical options consisting of left hip hemiarthroplasty at this time patient is interested in surgery Plan is for left hip hemiarthroplasty to take place [place] emergently with Dr. Braun orthopedic surgeon HECTOR Powers Surgical risks were explained to the patient including but not limited to: Pain, bleeding, infection, injury to adjacent structures, need for further surgery, implant failure, stroke risk, cardiac complications including heart attack or [place], pulmonary complications including pneumonia and pulmonary embolism, DVT, anesthesia reactions and . Patient understands his risks and wishes to proceed with surgery. Prognosis: Good Rehab Potential: Good I certify that the patient requires SNF services: Yes Overall status at discharge: patient is progressing back to baseline Discharge Orders: Discharge Order (Routine); Ordered 02/20/22 Ordered By: Chi Watson
--- NOTE | 2022-02-18 07:57 | Operative Note ---
DATE OF OPERATION: 02/17/2022 DATE OF PROCEDURE: 02/17/2022 PREOPERATIVE DIAGNOSIS: Left hip fracture. POSTOPERATIVE DIAGNOSIS: Left hip fracture. PROCEDURE: Left hemiarthroplasty for fractured left hip. SURGEON: Cruz Peraza M.D. SAVE ALL OPERATOR: Chi Watson PA-C. This providers expertise and technical skill were required throughout the case. The HECTOR assisted with preoperative coordination, intraoperative retraction, wound closure, and dressing and splint application, as well as postoperative documentation and care coordination. ANESTHESIA: General LMA anesthesia. COMPLICATIONS: None. ESTIMATED BLOOD LOSS: 58 mL. IMPLANTS: Size 6 cementless stem high offset with a neutral neck length with a 50 mm bipolar hemiarthroplasty. COMPLICATIONS: None. DISPOSITION: PACU. INDICATIONS: A very pleasant 87-year-old who fell and broke his left hip. DESCRIPTION OF PROCEDURE: The patient was brought to the operating room, put to sleep with general LMA anesthesia. Once asleep, the patient had the left hip sterilely prepped and draped in the usual sterile fashion in right lateral position on the fracture table. Once sterilely prepped, Ioban placed over the skin. A timeout was performed, confirming the operative site by initials, consent form, and x-ray. A 4-inch incision for a superior approach was made. We incised through the capsule after a Charnley retractor was placed. Identified the superior posterior capsule, which was released and tagged. We released the piriformis and obturator internus. The hip was dislocated superiorly with the femoral neck fracture. The fragments were removed. We then broached up to the size of a 6 stem with a high offset neutral neck length and a 50 mm bipolar head. This was reduced and was very stable throughout range of motion and leg lengths were symmetric and equal. We irrigated thoroughly and placed the cementless size 6 stem with a high offset. A 50 mm bipolar head was placed. This was reduced and the capsule repaired with #1 Ethibond. We closed the superior capsule with #1 Stratafix and closed the subcutaneous with Stratafix and adhesive closure. The patient tolerated this well. RBH:kareem Job ID: [id number] Doc ID: [id number] Cruz Peraza MD
[2022-02-18] MEDS ORDERED: NITROGLYCERIN 0.4 MG TAB.SUBL SL PRN (07:59)
[2022-02-18] MEDS: SERTRALINE 50 MG TABLET PO SCH (10:26)
[2022-02-18] MEDS: METOPROLOL SUCCINATE 25 MG TAB.XL.24H PO SCH (10:26)
[2022-02-18] MEDS: OMEPRAZOLE 20 MG CAPSULE PO SCH (10:26)
[2022-02-18] MEDS: ASPIRIN 81 MG TAB.CHEW CHEWED SCH ×2 (10:26→21:43)
[2022-02-18] MEDS: DOCUSATE SODIUM 100 MG CAPSULE PO SCH ×2 (10:27→21:44)
[2022-02-18] MEDS: MUPIROCIN OINT 2% 22GM NARES SCH ×2 (10:27→21:44)
--- NOTE | 2022-02-18 13:00 | Internal Med Progress Note ---
SUBJECTIVE Subjective Patient information: Note initiated : 02/18/22 at 12:56 pm Service Date, if different from initiated Date: [] Patient: Aura Hyatt 87 y/o M admitted on 02/16/22 for fall, hip pain. Chief Complaint: [] Interval history: Mr. Hyatt is a 87 year old male with a history of hypertension, hyperlipidemia, coronary artery disease status post CABG, probable CKD stage III, atrial flutter not on anticoagulation due to personal choice, peripheral vascular disease who had a mechanical fall at home and brought into the emergenc y department where he was found to have a left intertrochanteric femoral fracture. Hospital medicine was asked to admit the patient with orthopedic surgery consulting for surgical repair. 02/17 Remove yesterday evening the patient had changes in speech, comprehension which were initially concerning for possible stroke however this morning the patient is back to his previous status, possibly improved since admission. His symptoms were more likely related to the immediate postoperative period due to general anesthesia. Awaiting physical therapy recommendations, [facility] The patient has been started on aspirin 81 mg twice daily for DVT prophylaxis. Home medication reconciliation completed, resumed home Toprol, omeprazole, sertraline. Continue holding torsemide and spironolactone today, likely resume tomorrow. Physical exam Head: Atraumatic, normal inspection. Eyes: normal appearance, no scleral icterus. Neck: full ROM Respiratory: no respiratory distress. Cardiovascular: Sternotomy incision, normal rate and rhythm, S1, S2. GI/Abdominal: soft, nontender, no guarding. Extremities: Left hip surgical incision covered with clean bandage. Neurological: CN II-XII intact, intact motor, intact sensation. Psychiatric: Impaired memory Skin: warm, normal color Constitutional Vitals: Vital Signs Temp Pulse Resp BP Pulse Ox O2 Del Method O2 Flow Rate 97.9 F 70 16 125/60 95 96 02/18/22 12:00 02/18/22 12:00 02/18/22 12:00 02/18/22 12:00 02/18/22 12:00 02/18/22 12:00 02/18/22 00:00 Period Temp Pulse Resp BP Sys/Gilliam Pulse Ox O2 Del Method O2 Flow Rate Last 24 Hr 97.3 F-99.9 F 64-105 13-22 110-185/55-120 2-100 Nasal Cannula- Simple Mask 1-96 Intake and Output 02/17/22 02/18/22 02/18/22 21:59 05:59 13:59 Intake Total 1800 1800 240 Output Total 450 375 650 Balance 1350 1425 -410 Weight 69.127 kg Intake & Output: Intake & Output 02/17/22 02/18/22 02/18/22 21:59 05:59 13:59 Intake Total 1800 1800 240 Output Total 450 375 650 Balance 1350 1425 -410 Weight 69.127 kg Intake: IV 100 1250 Sodium Chloride 0.45% 1,000 ml 1000 @ 100 mls/hr IV .Q10H [facility] Rx#: [id number] Vancomycin 1,000 mg In Sodium 250 Chloride 0.9% 250 ml @ 250 mls/ hr IV PREOP [facility] Rx#:[id number] Oral 550 240 IV - Manual Only 1700 Output: Void Amount 400 375 650 Estimated Blood Loss 50 Other: Meal Breakfast Percent of Meal Consumed 100% Urine Appearance Clear Clear Clear Urine Color Dark Yellow Yellow Yellow Urine Odor Normal Normal # Voids 1 OBJ DATA Labs CBC & Chem 7: 02/18/22 05:23 02/17/22 05:50 Labs: Abnormal Lab Results 02/18/22 02/17/22 02/16/22 05:23 05:50 19:42 RBC Hgb Hct 32.1 L POC Hct 36.0 L MCV MCH Immature Gran % (Auto) Lymph % (Auto) Lymph # (Auto) Immature Gran # POC BUN 28 H Creatinine 1.4 H POC Creatinine 1.7 H Glucose 116 H POC Glucose 118 H POC WB Ioniz Calcium 1.13 L GGT 66 H 02/16/22 19:42 RBC 3.38 L Hgb 12.2 L Hct 35.4 L POC Hct MCV 104.7 H MCH 36.1 H Immature Gran % (Auto) 0.8 H Lymph % (Auto) 11.1 L Lymph # (Auto) 1.01 L Immature Gran # 0.07 H POC BUN Creatinine POC Creatinine Glucose POC Glucose POC WB Ioniz Calcium GGT Meds: Medications Acetaminophen (Acetaminophen 325 Mg Tablet) 650 mg PO Q6HP PRN; Protocol PRN Reason: Per Pain Protocol/Fever > 101 Hydrocodone Bitart/Acetaminophen (Hydrocodone/Apap 7.5/325mg Tablet) 1 - 2 tab PO Q4HP PRN; Protocol PRN Reason: Per Pain Protocol Last Admin: 02/17/22 20:34 Dose: 1 tab Aspirin (Aspirin 81 Mg Tab.Chew) 81 mg CHEWED BID [facility] Last Admin: 02/18/22 10:26 Dose: 81 mg Bisacodyl (Bisacodyl 10 Mg Supp.Rect) 10 mg [place] Q2-3DAYS PRN PRN Reason: Constipation Docusate Sodium (Docusate Sodium 100 Mg Capsule) 100 mg PO BID [facility] Last Admin: 02/18/22 10:27 Dose: 100 mg Hydromorphone HCl (Hydromorphone 1 Mg/Ml Syringe) 0.5 - 2 mg IV Q2HP PRN; Protocol PRN Reason: Per Pain Protocol Sodium Chloride (Sodium Chloride 0.9%) 1,000 mls @ 50 mls/hr IV .Q20H [facility] Last Admin: 02/18/22 04:58 Dose: Not Given Sodium Chloride (Sodium Chloride 0.45%) 1,000 mls @ 100 mls/hr IV .Q10H [facility] Last Admin: 02/18/22 05:09 Dose: 100 mls/hr Magnesium Hydroxide (Magnesium Hydroxide 30 Ml Oral.Susp) 30 ml PO BIDP PRN PRN Reason: Constipation Metoprolol Succinate (Metoprolol Succinate 25 Mg Tab.Xl.24h) 25 mg PO QDAY [facility] Last Admin: 02/18/22 10:26 Dose: 25 mg Mupirocin (Mupirocin Oint 2% 22gm) 1 dose NARES BID [facility] Last Admin: 02/18/22 10:27 Dose: 1 dose Nitroglycerin (Nitroglycerin 0.4 Mg Tab.Subl) 0.4 mg SL Q5MIN PRN PRN Reason: CHEST PAIN Omeprazole (Omeprazole 20 Mg Capsule) 20 mg PO QAM [facility] Last Admin: 02/18/22 10:26 Dose: 20 mg Ondansetron HCl (Ondansetron 4 Mg/2 Ml Vial) 4 mg IV Q4HP PRN; Protocol PRN Reason: Nausea And Vomiting Polyethylene Glycol (Polyethylene Glycol 3350 17 Gm Packet) 17 gm PO DAILYP PRN PRN Reason: Constipation Senna (Sennosides 1 Tablet) 2 tab PO HS [facility] Last Admin: 02/17/22 20:29 Dose: Not Given Sertraline HCl (Sertraline 50 Mg Tablet) 25 mg PO QAM [facility] Last Admin: 02/18/22 10:26 Dose: 25 mg Simvastatin (Simvastatin 20 Mg Tablet) 20 mg PO QHS [facility] Sodium Biphosphate/Sodium Phosphate (Fleets Adult Enema) 1 dose [place] Q3-4DAYS PRN PRN Reason: Constipation Sodium Chloride (0.9 % Sodium Chloride 10 Ml Syringe) 10 ml IV Q8 [facility] Last Admin: 02/18/22 04:57 Dose: Not Given Temazepam (Temazepam 15 Mg Capsule) 15 mg PO HSP PRN PRN Reason: Insomnia A/P Narrative A/P Narrative: Assessment: 87 year old male with a history of hypertension, hyperlipidemia, coronary artery disease status post CABG, atrial flutter not on anticoagulation, probable CKD stage III now admitted for a left peritrochanteric femoral fracture from a ground level mechanical fall. The patient underwent left hemiarthroplasty on 02/17/2022. #Left femoral neck fracture due to mechanical fall status post left hemiarthroplasty 02/17/2022 #Acute kidney injury, probable CKD stage III at baseline #Coronary artery disease, stable #Atrial flutter not on anticoagulation due to personal preference #Macrocytic anemia #Hypertension #Hyperlipidemia #Cognitive impairment Plan -As needed Tylenol and [place], discontinued IV Dilaudid. Avoid NSAIDs for probable CKD. -IV fluid today then discontinue. -Follow renal function. -Holding home spironolactone, torsemide. -Resume home Toprol, sertraline, simvastatin, omeprazole. -Orthopedic surgery following. -Regular diet. -PT consult -Delirium bundle. -DVT prophylaxis: Aspirin 81 mg twice daily per orthopedic surgery. -CODE STATUS: DNR/DNI -Disposition: Probably low intensity rehab, awaiting PT recommendations. Time Spent With Patient Time: Total time spent is greater than 50% in coordination of care (as documented) at patient's floor/unit and/or counseling patient: QUALITY VTE Deep Vein Thrombosis/Pulmonary Embolism Present on Admission: No
[2022-02-18] MEDS: HYDROCODONE/APAP 7.5/325MG TABLET PO PRN ×2 (14:35→18:37)
[2022-02-18] MEDS ORDERED: MELATONIN 3 MG TABLET PO SCH (21:20)
[2022-02-18] MEDS ORDERED: QUEtiapine 25 MG TABLET PO SCH ×2 (21:25)
[2022-02-18] MEDS ORDERED: MELATONIN 3 MG TABLET PO PRN (21:30)
[2022-02-18] MEDS: SENNOSIDES 1 TABLET PO SCH (21:43)
[2022-02-18] MEDS: SIMVASTATIN 20 MG TABLET PO SCH (21:43)
[2022-02-18] MEDS: HYDROcodone/APAP 5/325MG TABLET PO PRN (23:36)
[2022-02-19] MEDS: 0.9 % SODIUM CHLORIDE 1,000 ML IV SCH (04:00)
[2022-02-19] MEDS: 0.9 % SODIUM CHLORIDE 10 ML SYRINGE IV SCH ×3 (04:00→20:22)
[2022-02-19 07:26] LABS: ALT/SGPT 11 U/L (<40); AST/SGOT 35 U/L (<40); Albumin 3.2 gm/dL (3.2-5.2); Albumin/Globulin Ratio 1.5 (1.0-2.3); Alkaline Phosphatase 52 U/L (39-117); Bilirubin,Direct < 0.2 mg/dL (0-0.3); Bilirubin,Total 0.6 mg/dL (0.1-1.0); Blood Urea Nitrogen 24 mg/dL (8-23); Calcium 8.3 mg/dL (8.6-10.4); Carbon Dioxide 22 mmol/L (22-30); Chloride 102 mmol/L (96-108); Globulin 2.2 gm/dL (2.2-3.7); Glomerular Filtration Rate 54; Glucose 101 mg/dL (70-105); Lactate Dehydrogenase 132 U/L (135-225); Phosphorous 2.5 mg/dL (2.5-4.5); Triglycerides 106 mg/dL (<150); Uric Acid 5.2 mg/dL (2.5-8.0)
--- NOTE | 2022-02-19 09:36 | Orthopedic Progress Note ---
SUBJECTIVE Subjective Patient information: Note initiated : 02/19/22 at 9:34 am Service Date, if different from initiated Date: [] Patient: Aura Hyatt 87 y/o M admitted on 02/16/22 for fall, hip pain. Chief Complaint: [minimal pain but slow to walk and is eating and non nausea] Principal diagnosis: left hip fx orif with elsa Constitutional Vitals: Vital Signs Temp Pulse Resp BP Pulse Ox O2 Del Method O2 Flow Rate 97.2 F 62 18 143/67 98 96 02/19/22 07:30 02/19/22 07:30 02/19/22 07:30 02/19/22 07:30 02/19/22 09:26 02/19/22 09:26 02/18/22 00:00 Period Temp Pulse Resp BP Sys/Gilliam Pulse Ox O2 Del Method O2 Flow Rate Last 24 Hr 97.2 F-98.5 F 62-86 16-24 104-143/46-79 92-98 Room Air-Room Air Intake and Output 02/18/22 02/19/22 02/19/22 21:59 05:59 13:59 Intake Total 1000 Output Total 150 200 225 Balance 850 -200 -225 Weight 152 lb 1.6 oz Intake & Output: Intake & Output 02/18/22 02/19/22 02/19/22 21:59 05:59 13:59 Intake Total 1000 Output Total 150 200 225 Balance 850 -200 -225 Weight 152 lb 1.6 oz Intake: IV 1000 Sodium Chloride 0.45% 1,000 ml 1000 @ 100 mls/hr IV .Q10H [facility] Rx#: [id number] Output: Void Amount 150 200 225 Other: Urine Appearance Clear Clear Clear Urine Color Yellow Yellow Yellow Urine Odor Normal # Voids 5 General appearance: thin Extremities Exam Extremities exam: Present Foot pink and warm and neurovascular intact OBJ DATA Labs CBC & Chem 7: 02/19/22 05:34 02/19/22 05:33 Labs: Abnormal Lab Results 02/19/22 02/19/22 02/18/22 05:34 05:33 05:23 RBC Hgb 9.5 L Hct 32.1 L POC Hct MCV MCH Immature Gran % (Auto) Lymph % (Auto) Lymph # (Auto) Immature Gran # POC BUN BUN 24 H Creatinine POC Creatinine Glucose POC Glucose Calcium 8.3 L POC WB Ioniz Calcium GGT Lactate Dehydrogenase 132 L Total Protein 5.4 L 02/17/22 02/16/22 02/16/22 05:50 19:42 19:42 RBC 3.38 L Hgb 12.2 L Hct 35.4 L POC Hct 36.0 L MCV 104.7 H MCH 36.1 H Immature Gran % (Auto) 0.8 H Lymph % (Auto) 11.1 L Lymph # (Auto) 1.01 L Immature Gran # 0.07 H POC BUN 28 H BUN Creatinine 1.4 H POC Creatinine 1.7 H Glucose 116 H POC Glucose 118 H Calcium POC WB Ioniz Calcium 1.13 L GGT 66 H Lactate Dehydrogenase Total Protein Meds: Medications Acetaminophen (Acetaminophen 325 Mg Tablet) 650 mg PO Q6HP PRN; Protocol PRN Reason: Per Pain Protocol/Fever > 101 Hydrocodone Bitart/Acetaminophen (Hydrocodone/Apap 5/325mg Tablet) 1 tab PO Q6HP PRN; Protocol PRN Reason: Per Pain Protocol Last Admin: 02/18/22 23:36 Dose: 1 tab Aspirin (Aspirin 81 Mg Tab.Chew) 81 mg CHEWED BID [facility] Last Admin: 02/18/22 21:43 Dose: 81 mg Bisacodyl (Bisacodyl 10 Mg Supp.Rect) 10 mg [place] Q2-3DAYS PRN PRN Reason: Constipation Docusate Sodium (Docusate Sodium 100 Mg Capsule) 100 mg PO BID [facility] Last Admin: 02/18/22 21:44 Dose: 100 mg Sodium Chloride (Sodium Chloride 0.9%) 1,000 mls @ 50 mls/hr IV .Q20H [facility] Last Admin: 02/19/22 04:00 Dose: Not Given Magnesium Hydroxide (Magnesium Hydroxide 30 Ml Oral.Susp) 30 ml PO BIDP PRN PRN Reason: Constipation Melatonin (Melatonin 3 Mg Tablet) 3 mg PO HSP PRN PRN Reason: Sleep Metoprolol Succinate (Metoprolol Succinate 25 Mg Tab.Xl.24h) 25 mg PO QDAY [facility] Last Admin: 02/18/22 10:26 Dose: 25 mg Mupirocin (Mupirocin Oint 2% 22gm) 1 dose NARES BID [facility] Last Admin: 02/18/22 21:44 Dose: 1 dose Nitroglycerin (Nitroglycerin 0.4 Mg Tab.Subl) 0.4 mg SL Q5MIN PRN PRN Reason: CHEST PAIN Omeprazole (Omeprazole 20 Mg Capsule) 20 mg PO QAM [facility] Last Admin: 02/18/22 10:26 Dose: 20 mg Ondansetron HCl (Ondansetron 4 Mg/2 Ml Vial) 4 mg IV Q4HP PRN; Protocol PRN Reason: Nausea And Vomiting Polyethylene Glycol (Polyethylene Glycol 3350 17 Gm Packet) 17 gm PO DAILYP PRN PRN Reason: Constipation Quetiapine Fumarate (Quetiapine 25 Mg Tablet) [address] [facility] Stop: 02/19/22 21:24 Last Admin: 02/18/22 23:41 Dose: 25 mg Senna (Sennosides 1 Tablet) [address] [facility] Last Admin: 02/18/22 21:43 Dose: 2 tab Sertraline HCl (Sertraline 50 Mg Tablet) 25 mg PO QAM [facility] Last Admin: 02/18/22 10:26 Dose: 25 mg Simvastatin (Simvastatin 20 Mg Tablet) 20 mg PO QHS [facility] Last Admin: 02/18/22 21:43 Dose: 20 mg Sodium Biphosphate/Sodium Phosphate (Fleets Adult Enema) 1 dose [place] Q3-4DAYS PRN PRN Reason: Constipation Sodium Chloride (0.9 % Sodium Chloride 10 Ml Syringe) 10 ml IV Q8 [facility] Last Admin: 02/19/22 04:00 Dose: 10 ml A/P Assessment and plan (1) Closed fracture of neck of left femur: Plan: dc to rehab Status: Acute Qualifiers: Encounter type: initial encounter Qualified Code(s): S72.002A - Fracture of unspecified part of neck of left femur, initial encounter for closed fracture Plan dc to snf Sepsis Sepsis Identified: No Time Spent With Patient Time: Total time spent is greater than 50% in coordination of care (as documented) at patient's floor/unit and/or counseling patient: Total time spent with greater than 50% in coordination of care (as documented) at patient's floor/unit and/or counseling patient:: less than 15 minutes Critical Care Time: No
[2022-02-19] MEDS: ASPIRIN 81 MG TAB.CHEW CHEWED SCH ×2 (10:00→20:21)
[2022-02-19] MEDS: METOPROLOL SUCCINATE 25 MG TAB.XL.24H PO SCH (10:02)
[2022-02-19] MEDS: SERTRALINE 50 MG TABLET PO SCH (10:03)
[2022-02-19] MEDS: OMEPRAZOLE 20 MG CAPSULE PO SCH (10:04)
[2022-02-19] MEDS: DOCUSATE SODIUM 100 MG CAPSULE PO SCH ×2 (10:06→20:21)
[2022-02-19] MEDS: MUPIROCIN OINT 2% 22GM NARES SCH ×2 (10:07→20:22)
--- NOTE | 2022-02-19 13:32 | Internal Med Progress Note ---
SUBJECTIVE Subjective Patient information: Note initiated : 02/19/22 at 1:32 pm Service Date, if different from initiated Date: [] Patient: Aura Hyatt 87 y/o M admitted on 02/16/22 for fall, hip pain. Chief Complaint: [] Principal diagnosis: left hip fx orif with elsa Interval history: Mr. Hyatt is a 87 year old male with a history of hypertension, hyperlipidemia, coronary artery disease status post CABG, probable CKD stage III, atrial flutter not on anticoagulation due to personal choice, peripheral vascular disease who had a mechanical fall at home and brought into the emergency department where he was found to have a left intertrochanteric femoral fracture. Hospital medicine was asked to admit the patient with orthopedic surgery consulting for surgical repair. 02/17 Remove yesterday evening the patient had changes in speech, comprehension which were initially concerning for possible stroke however this morning the patient is back to his previous status, possibly improved since admission. His symptoms were more likely related to the immediate postoperative period due to general anesthesia. Awaiting physical therapy recommendations, anticipate probable [facility] intensity rehab at [facility]. The patient has been started on aspirin 81 mg twice daily for DVT prophylaxis. Home medication reconciliation completed, resumed home Toprol, omeprazole, sertraline. Continue holding tors emide and spironolactone as the patient is euvolemic. The patient was somewhat agitated in the evening so started Seroquel at bedtime and melatonin at bedtime. 02/18 Vital stable overnight, hemoglobin trended down to 9.5. Creatinine 1.2 today, yesterday 1.4. The patient slept well overnight, will continue with melatonin but discontinue Seroquel. Case management working on low intensity rehab p lacement. Case management working on placement. Physical exam Head: Atraumatic, normal inspection. Eyes: normal appearance, no scleral icterus. Neck: full ROM Respiratory: no respiratory distress. Cardiovascular: Sternotomy incision, normal rate and rhythm, S1, S2. GI/Abdominal: soft, nontender, no guarding. Extremities: Left hip surgical incision covered with clean bandage. Neurological: CN II-XII intact, intact motor, intact sensation. Psychiatric: Impaired memory Skin: warm, normal color Constitutional Vitals: Vital Signs Temp Pulse Resp BP Pulse Ox O2 Del Method O2 Flow Rate 98.1 F 88 18 109/67 97 96 10/19/22 12:00 02/19/22 12:00 02/19/22 12:00 02/19/22 12:00 02/19/22 12:00 02/19/22 11:20 02/18/22 00:00 Period Temp Pulse Resp BP Sys/Gilliam Pulse Ox O2 Del Method O2 Flow Rate Last 24 Hr 97.2 F-98.5 F 62-88 16-24 104-143/46-79 92-98 Room Air-Room Air Intake and Output 02/18/22 02/19/22 02/19/22 21:59 05:59 13:59 Intake Total 1000 480 Output Total 150 200 425 Balance 850 -200 55 Weight 68.991 kg Intake & Output: Intake & Output 02/18/22 02/19/22 02/19/22 21:59 05:59 13:59 Intake Total 1000 480 Output Total 150 200 425 Balance 850 -200 55 Weight 68.991 kg Intake: IV 1000 Sodium Chloride 0.45% 1,000 ml 1000 @ 100 mls/hr IV .Q10H [facility] Rx#: [id number] Oral 480 Output: Void Amount 150 200 425 Other: Meal Breakfast Percent of Meal Consumed 100% Feeding Ability Assist with Tray Set Up Urine Appearance Clear Clear Clear Urine Color Yellow Yellow Yellow Urine Odor Normal # Voids 5 OBJ DATA Labs CBC & Chem 7: 02/19/22 05:34 02/19/22 05:33 Labs: Abnormal Lab Results 02/19/22 02/19/22 02/18/22 05:34 05:33 05:23 RBC Hgb 9.5 L Hct 32.1 L POC Hct MCV MCH Immature Gran % (Auto) Lymph % (Auto) Lymph # (Auto) Immature Gran # POC BUN BUN 24 H Creatinine POC Creatinine Glucose POC Glucose Calcium 8.3 L POC WB Ioniz Calcium GGT Lactate Dehydrogenase 132 L Total Protein 5.4 L 02/17/22 02/16/22 02/16/22 05:50 19:42 19:42 RBC 3.38 L Hgb 12.2 L Hct 35.4 L POC Hct 36.0 L MCV 104.7 H MCH 36.1 H Immature Gran % (Auto) 0.8 H Lymph % (Auto) 11.1 L Lymph # (Auto) 1.01 L Immature Gran # 0.07 H POC BUN 28 H BUN Creatinine 1.4 H POC Creatinine 1.7 H Glucose 116 H POC Glucose 118 H Calcium POC WB Ioniz Calcium 1.13 L GGT 66 H Lactate Dehydrogenase Total Protein Meds: Medications Acetaminophen (Acetaminophen 325 Mg Tablet) 650 mg PO Q6HP PRN; Protocol PRN Reason: Per Pain Protocol/Fever > 101 Hydrocodone Bitart/Acetaminophen (Hydrocodone/Apap 5/325mg Tablet) 1 tab PO Q6HP PRN; Protocol PRN Reason: Per Pain Protocol Last Admin: 02/18/22 23:36 Dose: 1 tab Aspirin (Aspirin 81 Mg Tab.Chew) 81 mg CHEWED BID [facility] Last Admin: 02/19/22 10:00 Dose: 81 mg Bisacodyl (Bisacodyl 10 Mg Supp.Rect) 10 mg [place] Q2-3DAYS PRN PRN Reason: Constipation Docusate Sodium (Docusate Sodium 100 Mg Capsule) 100 mg PO BID [facility] Last Admin: 02/19/22 10:06 Dose: 100 mg Magnesium Hydroxide (Magnesium Hydroxide 30 Ml Oral.Susp) 30 ml PO BIDP PRN PRN Reason: Constipation Melatonin (Melatonin 3 Mg Tablet) 3 mg PO HSP PRN PRN Reason: Sleep Metoprolol Succinate (Metoprolol Succinate 25 Mg Tab.Xl.24h) 25 mg PO QDAY [facility] Last Admin: 02/19/22 10:02 Dose: 25 mg Mupirocin (Mupirocin Oint 2% 22gm) 1 dose NARES BID [facility] Last Admin: 02/19/22 10:07 Dose: 1 dose Nitroglycerin (Nitroglycerin 0.4 Mg Tab.Subl) 0.4 mg SL Q5MIN PRN PRN Reason: CHEST PAIN Omeprazole (Omeprazole 20 Mg Capsule) 20 mg PO QAM [facility] Last Admin: 02/19/22 10:04 Dose: 20 mg Ondansetron HCl (Ondansetron 4 Mg/2 Ml Vial) 4 mg IV Q4HP PRN; Protocol PRN Reason: Nausea And Vomiting Polyethylene Glycol (Polyethylene Glycol 3350 17 Gm Packet) 17 gm PO DAILYP PRN PRN Reason: Constipation Quetiapine Fumarate (Quetiapine 25 Mg Tablet) 25 mg PO [facility] Stop: 02/19/22 21:24 Last Admin: 02/18/22 23:41 Dose: 25 mg Senna (Sennosides 1 Tablet) 2 tab PO [facility] Last Admin: 02/18/22 21:43 Dose: 2 tab Sertraline HCl (Sertraline 50 Mg Tablet) 25 mg PO QAM [facility] Last Admin: 02/19/22 10:03 Dose: 25 mg Simvastatin (Simvastatin 20 Mg Tablet) 20 mg PO QHS [facility] Last Admin: 02/18/22 21:43 Dose: 20 mg Sodium Biphosphate/Sodium Phosphate (Fleets Adult Enema) 1 dose [place] Q3-4DAYS PRN PRN Reason: Constipation Sodium Chloride (0.9 % Sodium Chloride 10 Ml Syringe) 10 ml IV Q8 [facility] Last Admin: 02/19/22 04:00 Dose: 10 ml A/P Narrative A/P Narrative: Assessment: 87 year old male with a history of hypertension, hyperlipidemia, coronary artery disease status post CABG, atrial flutter not on anticoagulation, probable CKD stage III now admitted for a left peritrochanteric femoral fracture from a ground level mechanical fall. The patient underwent left hemiarthroplasty on 02/17/2022. #Left femoral neck fracture due to mechanical fall status post left hemiarthroplasty 02/17/2022 #Resolved acute kidney injury, probable CKD stage III at baseline #Coronary artery disease, stable #Atrial flutter not on anticoagulation due to personal preference #Macrocytic anemia #Hypertension #Hyperlipidemia #Cognitive impairment Plan -As needed Tylenol and [place], avoid NSAIDs for probable CKD. -Holding home spironolactone, torsemide for now. -Continue home Toprol, sertraline, simvastatin, omeprazole. -Orthopedic surgery following. -Melatonin at bedtime. -PT consult -Delirium bundle.. -Regular diet. -DVT prophylaxis: Aspirin 81 mg twice daily per orthopedic surgery. -CODE STATUS: DNR/DNI -Disposition: Low intensity rehab pending placement. Time Spent With Patient Time: Total time spent is greater than 50% in coordination of care (as documented) at patient's floor/unit and/or counseling patient: QUALITY VTE Deep Vein Thrombosis/Pulmonary Embolism Present on Admission: No
[2022-02-19] MEDS: HYDROcodone/APAP 5/325MG TABLET PO PRN ×2 (15:14→20:23)
[2022-02-19] MEDS: SENNOSIDES 1 TABLET PO SCH (20:21)
[2022-02-19] MEDS: SIMVASTATIN 20 MG TABLET PO SCH (20:21)
[2022-02-20] MEDS: 0.9 % SODIUM CHLORIDE 10 ML SYRINGE IV SCH (05:29)
[2022-02-20 06:47] LABS: ALT/SGPT 26 U/L (<40); AST/SGOT 59 U/L (<40); Albumin 3.3 gm/dL (3.2-5.2); Albumin/Globulin Ratio 1.4 (1.0-2.3); Alkaline Phosphatase 98 U/L (39-117); Bilirubin,Direct < 0.2 mg/dL (0-0.3); Bilirubin,Total 0.5 mg/dL (0.1-1.0); Blood Urea Nitrogen 36 mg/dL (8-23); Calcium 8.5 mg/dL (8.6-10.4); Carbon Dioxide 24 mmol/L (22-30); Chloride 102 mmol/L (96-108); Globulin 2.3 gm/dL (2.2-3.7); Glomerular Filtration Rate 45; Glucose 103 mg/dL (70-105); Lactate Dehydrogenase 145 U/L (135-225); Phosphorous 2.1 mg/dL (2.5-4.5); Triglycerides 93 mg/dL (<150); Uric Acid 5.4 mg/dL (2.5-8.0)
--- NOTE | 2022-02-20 08:30 | Discharge Summary ---
Discharge Provider Provider IMPORTANT FOLLOW-UP INFORMATION FOR PCP: Patient information: Note initiated : 02/20/22 at 8:28 am Service Date, if different from initiated Date: [] Patient: Aura Hyatt 87 y/o M admitted on 02/16/22 for fall, hip pain. Chief Complaint: [] Date of admission: 02/16/22 22:19 Discharge date: 02/20/22 Primary care physician: PCP No Consults: 02/16/22 Consult to Physician [CONS] Stat Comment: Consulting Provider: Shine Schulte Reason For Exam: Physician to Consult 02/16/22 23:11 Consult to Physician [CONS] Stat Comment: Consulting Provider: Jos Braun Reason For Exam: Physician to Consult COURSE Hospital Course Hospital course: Mr. Hyatt is a 87 year old male with a history of hypertension, hyperlipidemia, coronary artery disease status post CABG, probable CKD stage III, atrial flutter not on anticoagulation due to personal choice, peripheral vascular disease who had a mechanical fall at home and brought into the [facility] department where he was found to have a left intertrochanteric femoral fracture. Hospital medicine was asked to admit the patient with orthopedic surgery consulting for surgical repair. 02/17 Remove yesterday evening the patient had changes in speech, comprehension which were initially concerning for possible stroke however this morning the patient is back to his previous status, possibly improved since admission. His symptoms were more likely related to the immediate postoperative period due to general anesthesia. Awaiting physical therapy recommendations, anticipate probable low intensity rehab at half-way facility. The patient has been started on aspirin 81 mg twice daily for DVT prophylaxis. Home medication reconciliation completed, resumed home Toprol, omeprazole, sertraline. Continue holding torsemide and spironolactone as the patient is euvolemic. The patient was somewhat agitated in the evening so started Seroquel at bedtime and melatonin at bedtime. 02/18 Vital stable overnight, hemoglobin trended down to 9.5. Creatinine 1.2 today, yesterday 1.4. The patient slept well overnight, will continue with melatonin but discontinue Seroquel. Case management working on low intensity rehab placement. Case management working on placement. 02/19 Discharge to low intensity rehab at half-way facility. Aspirin 81 mg twice daily per orthopedic surgery. Physical exam Head: Atraumatic, normal inspection. Eyes: normal appearance, no scleral icterus. Neck: full ROM Respiratory: no respiratory distress. Cardiovascular: Sternotomy incision, normal rate and rhythm, S1, S2. GI/Abdominal: soft, nontender, no guarding. Extremities: Left hip surgical incision covered with clean bandage. Neurological: CN II-XII intact, intact motor, intact sensation. Psychiatric: Impaired memory Skin: warm, normal color Discharge diagnosis: Left femoral neck fracture Time Spent with Patient Time attestation: Total time spent providing and/or coordinating discharge services: Time spent: Greater than 30 minutes EXAM Constitutional Vitals: Temp Pulse Resp BP Pulse Ox O2 Del Method O2 Flow Rate 98.1 F 87 18 151/84 100 96 02/20/22 06:45 02/20/22 06:45 02/20/22 06:45 02/20/22 06:45 02/20/22 06:45 02/20/22 06:45 02/18/22 00:00 Discharge Data Data Completed and Pending Labs on day of discharge: Labs from last 24 hours 02/20/22 05:10 Sodium 135 Potassium 4.6 Chloride 102 Carbon Dioxide 24 Anion Gap 9.0 BUN 36 H Creatinine 1.4 H GFR Calculation 45 Glucose 103 Uric Acid 5.4 Calcium 8.5 L Phosphorus 2.1 L Magnesium 2.0 Total Bilirubin 0.5 Direct Bilirubin < 0.2 GGT 107 H AST 59 H ALT 26 Alkaline Phosphatase 98 Lactate Dehydrogenase 145 Total Protein 5.6 L Albumin 3.3 Globulin 2.3 Albumin/Globulin Ratio 1.4 Triglycerides 93 Discharge Plan Patient/Caregiver Discharge Instructions Activity: ambulate only with your walker and as per physical therapy Diet: Regular Diet Activity Restrictions/Additional Instructions: You have the silver dressing (a waterproof dressing covering your surgical incision). Leave in place for 5-7 days then remove. Remove by Thursday, 02/26. If dressing becomes soiled (turns black), remove and use gauze 4x4 dressing and antimicrobial silver ointment ([id number]) and change daily. You may shower. Do not scrub dressing. Do not use soap over top of dressing. Pat dry Prescriptions: New hydrocodone-acetaminophen 5-325 mg tablet 1 - 2 tab PO Q4H PRN (Reason: Pain) Qty: 30 0RF aspirin [Ecotrin Low Strength] 81 mg tablet,delayed release (DR/EC) 81 mg PO BID Qty: 60 0RF docusate sodium 100 mg capsule 100 mg PO BID Qty: 60 0RF polyethylene glycol 3350 [HealthyLax] 17 gram Powder In Packet 17 g PO DAILYP PRN (Reason: Constipation) Qty: 30 0RF sennosides [Senna Lax] 8.6 mg Tablet 17.2 mg PO BID 15 Days Qty: 60 0RF acetaminophen [Tylenol Extra Strength] 500 mg tablet 500 mg PO Q4H PRN (Reason: fever or pain) Qty: 30 0RF Continued cholecalciferol (vitamin D3) 50 mcg (2,000 unit) tablet 2,000 unit PO QDAY ferrous sulfate 325 mg (65 mg iron) tablet 325 mg PO QDAY omeprazole 20 mg capsule,delayed release(DR/EC) 20 mg PO QAM Qty: 30 12RF Rx Instructions: 1 hr.prior to breakfast. sertraline 25 mg tablet See Rx Instructions .ROUTE .COMPLEX Qty: 30 6RF Dose Instruction: TAKE ONE TABLET BY MOUTH EVERY DAY Rx Instructions: TAKE ONE TABLET BY MOUTH EVERY DAY metoprolol succinate 25 mg tablet extended release 24 hr 25 mg PO QDAY Qty: 90 0RF torsemide 10 mg tablet See Rx Instructions .ROUTE .COMPLEX Qty: 30 3RF Dose Instruction: TAKE ONE TABLET BY MOUTH Thursday AND THURSDAY FOR EDEMA Rx Instructions: TAKE ONE TABLET BY MOUTH Thursday AND THURSDAY FOR EDEMA simvastatin 20 mg tablet 20 mg PO QHS Qty: 30 2RF spironolactone 25 mg tablet 12.5 mg PO QDAY Qty: 30 1RF nitroglycerin 0.4 mg tablet, sublingual 0.4 mg sublingual Q5-15M PRN (Reason: chest pain) Qty: 25 1RF Rx Instructions: do not exceed 3 doses per episode Other Ambulatory Orders: Physical Therapy DC - LUANN (Routine) Location: None Selected Ordered By: Chi Watson Toilet Riser Discharge Order (ONCE) Location: None Selected Ordered By: Chi Watson Walker (ONCE) Location: None Selected Ordered By: Chi Watson Follow Up Plan Follow up with: No,PCP [Primary Care Provider] - Chi Watson PA-C [Physician Cafe Server] - Patient Disposition: Xfer SNF Prognosis: Good Rehab Potential: Good I certify that the patient requires SNF services: Yes Overall status at discharge: patient is progressing back to baseline Discharge Orders: Discharge Order (Routine); Ordered 02/20/22 Ordered By: Chi HAILE VTE Deep Vein Thrombosis/Pulmonary Embolism Present on Admission: No
[2022-02-20] MEDS: SERTRALINE 50 MG TABLET PO SCH (10:51)
[2022-02-20] MEDS: ASPIRIN 81 MG TAB.CHEW CHEWED SCH (10:51)
[2022-02-20] MEDS: OMEPRAZOLE 20 MG CAPSULE PO SCH (10:52)
[2022-02-20] MEDS: DOCUSATE SODIUM 100 MG CAPSULE PO SCH (10:52)
[2022-02-20] MEDS: METOPROLOL SUCCINATE 25 MG TAB.XL.24H PO SCH (10:52)
[2022-02-20] MEDS: MUPIROCIN OINT 2% 22GM NARES SCH (11:00)
== END 2022-02-20 11:59 | DRG 522 ==
LOC: ED 18:24 → MEDSUR 22:19
PROVIDERS: ADMIT Internal Medicine; ATTEND Internal Medicine